=== PATIENT | female | born 1950 | race Caucasian/White ===

== ENCOUNTER 2021-01-04 10:11 | Inpatient (IN) | payer MEDICARE, OTHER ==
[~2021-01-04] VITALS: Ht 256.5 cm; Wt 52.2 kg
--- NOTE | 2021-01-04 10:12 | NUR ---
BIB [facility] from work with c/o abd pain, near syncopal episode at work and hypotension. Pt was brought directly to room 1b, NS 500ml bolus in progress (started by EMS in route to ER). Pt placed on cont medical service representative, pulse ox and BP.
[2021-01-04] MEDS ORDERED: IV NORMAL SALINE 500 ML IV ONE (10:30)
[2021-01-04 10:55] LABS: HEMATOCRIT 45.8 % (31.2-41.9); MEAN CORPUSCULAR HEMOGLOBIN 29.6 uug (24.7-32.8); MEAN CORPUSCULAR VOLUME 88.5 fL (75.5-95.3); PLATELET COUNT (AUTO) 276 K/uL (179-408)
[2021-01-04 11:05] LABS: BILIRUBIN,DIRECT 0.2 mg/dL (0.0-0.2); BILIRUBIN,TOTAL 0.7 mg/dL (0.2-1.0); CREATININE 1.2 mg/dL (0.6-1.3); POTASSIUM 3.1 mmol/L (3.5-5.1); TOTAL PROTEIN, SERUM 6.4 g/dL (6.4-8.2)
--- NOTE | 2021-01-04 11:40 | NUR ---
Pt had a large loose BM and stated she felt much better after.
[2021-01-04] MEDS: MAGNESIUM SULFATE/D5W 100 ML IV SCH ×2 (11:50→13:15)
[2021-01-04] MEDS: POTASSIUM CHLORIDE 20 MEQ TAB.PRT.SR PO ONE ×2 (12:00→12:15)
[2021-01-04] MEDS ORDERED: IV NORMAL SALINE 250 ML IV ONE (12:05)
[2021-01-04] MEDS ORDERED: IOHEXOL 300MG/ML 100 ML INFUS..BTL ONE (12:05)
[2021-01-04] MEDS ORDERED: ONDANSETRON 4 MG/2 ML VIAL IV ONE (12:15)
[2021-01-04] MEDS ORDERED: ONDANSETRON 4 MG/2 ML VIAL ONE (12:54)
[2021-01-04] MEDS ORDERED: MAGNESIUM SULFATE/D5W 200 ML ONE (12:54)
[2021-01-04] MEDS ORDERED: POTASSIUM CHLORIDE 20 MEQ TAB.PRT.SR ONE (12:54)
--- NOTE | 2021-01-04 13:00 | NUR ---
Pt has had multiple loose bowel movements in the ER. Stool sample was collected and sent to lab.
[2021-01-04] MEDS ORDERED: POTASSIUM CHLORIDE 20 MEQ POWDER PACKET PO ONE (13:56)
[2021-01-04] MEDS ORDERED: POTASSIUM CHLORIDE 20 MEQ POWDER PACKET ONE (13:57)
--- NOTE | 2021-01-04 14:09 | NUR ---
Pt resting with NAD noted. Per pt to be admitted to tele, [email or web address] paged.
[2021-01-04] MEDS ORDERED: QUIN40TA14 PO (14:32)
[2021-01-04] MEDS ORDERED: DILT-32 PO (14:32)
--- NOTE | 2021-01-04 15:50 | NUR ---
Pt trans to tele floor (rm [id number]) with NAD noted.
[2021-01-04 16:19] VITALS: BP 133/68
[2021-01-04] MEDS ORDERED: ONDANSETRON 4 MG/2 ML VIAL IV PRN (16:30)
[2021-01-04] MEDS ORDERED: Z GUARD REMEDY PASTE 57 GM TUBE TOP PRN (16:30)
[2021-01-04] MEDS: POTASSIUM CHLORIDE 20 MEQ in IV LACTATED RINGERS SOLUTION 1,000 ML IV PRN (18:27)
[2021-01-04 20:00] VITALS: BP 126/69
--- NOTE | 2021-01-04 20:11 | NUR ---
Patient in bed alert x 4.Denies pain.No s/s of distress noted. On RA.Iv on Right hand patent and intact with IVF running well. IV site no s/s of infiltration.Patient noted with dark red urine output per patient she had one episodes of red urine this morning. Zach Cam made aware .Ok to give lovenox.VSS.Will continue to monitor.
[2021-01-04] MEDS: ACETAMINOPHEN 325 MG TABLET PO PRN (20:40)
[2021-01-04] MEDS: ENOXAPARIN SODIUM 40 MG/0.4 ML DISP.SYRIN SQ SCH (21:36)
[2021-01-04 21:50] LABS: *BILIRUBIN,URIN 1+ (NEGATIVE); *CLARITY,URINE CLEAR (CLEAR); *COLOR,URINE DARK YELLOW (YELLOW); *KETONES,URINE NEGATIVE (NEGATIVE); *UROBILINOGEN,URINE 0.2 E.U./dl (NORMAL); LEUKOCYTE ESTERASE ,URINE NEGATIVE (NEGATIVE); NITRITE, URINE NEGATIVE (NEGATIVE); UGLUCOSE NEGATIVE (NEGATIVE)
[2021-01-04 21:52] LABS: *BLOOD, URINE TRACE LYSED (NEGATIVE)
[2021-01-04 22:35] LABS: BACTERIA,URINE NONE SEEN /HPF (NONE SEEN); SQUAMOUS EPITHELIAL CELL,UR FEW /HPF (NONE SEEN); WBC,URINE 0-3 /HPF (0-3)
[2021-01-05] VITALS: BP 122/68
[2021-01-05 04:00] VITALS: BP 127/74
[2021-01-05] MEDS: ACETAMINOPHEN 325 MG TABLET PO PRN ×2 (04:48→09:35)
[2021-01-05] MEDS: POTASSIUM CHLORIDE 20 MEQ in IV LACTATED RINGERS SOLUTION 1,000 ML IV PRN ×2 (04:50→17:14)
--- NOTE | 2021-01-05 06:28 | NUR ---
Patient's IV pulled out .Re - inserted new Iv on left hand 22 g with good blood return. Patient denies pain at this.Urine sample collected and sent to lab.
[2021-01-05 06:29] LABS: HEMATOCRIT 38.9 % (31.2-41.9); MEAN CORPUSCULAR HEMOGLOBIN 29.1 uug (24.7-32.8); MEAN CORPUSCULAR VOLUME 87.8 fL (75.5-95.3); PLATELET COUNT (AUTO) 152 K/uL (179-408)
[2021-01-05 06:54] LABS: THYROID STIMULATING HORMONE 0.277 mIU/mL (0.358-3.740)
[2021-01-05 06:55] LABS: BILIRUBIN,TOTAL 0.7 mg/dL (0.2-1.0); CREATININE 0.9 mg/dL (0.6-1.3); MAGNESIUM 2.3 mg/dL (1.8-2.4); PHOSPHOROUS 3.4 mg/dL (2.5-4.9); POTASSIUM 4.1 mmol/L (3.5-5.1); TOTAL PROTEIN, SERUM 5.6 g/dL (6.4-8.2)
--- NOTE | 2021-01-05 07:30 | NUR ---
Received pt. AAOX4. vitals stable see VS sheet resting comfortable, on RA. No c/of pain.
[2021-01-05 08:00] VITALS: BP 126/63
--- NOTE | 2021-01-05 10:39 | NUR ---
Attending at bedside to examine pt.
[2021-01-05] MEDS: ASPIRIN/ACETAMINOPHEN/CAFFEINE TABLET PO PRN ×2 (15:37→21:51)
[2021-01-05 15:48] VITALS: BP 108/58
--- NOTE | 2021-01-05 16:38 | NUR ---
handoff report given to rn. Park
[2021-01-05 20:10] VITALS: BP 128/77
[2021-01-05] MEDS: ENOXAPARIN SODIUM 40 MG/0.4 ML DISP.SYRIN SQ SCH (20:43)
[2021-01-06 00:10] VITALS: BP 120/74
[2021-01-06] MEDS: POTASSIUM CHLORIDE 20 MEQ in IV LACTATED RINGERS SOLUTION 1,000 ML IV PRN ×2 (02:59→08:19)
--- NOTE | 2021-01-06 05:28 | NUR ---
Pt slept intermittently throughout the night. Denies pain or SOB. No distress noted. Safety and comfort provided. No other issues or concerns at this time, will endorse to day shift.
--- NOTE | 2021-01-06 07:00 | NUR ---
RECEIVED PT AWAKE, ALERT AND ORIENTEDX4. PT IN NO ACUTE DISTRESS. IV INTACT. SAFETY AND COMFORT PROVIDED. WILL CONTINUE TO MONITOR.
[2021-01-06 07:42] VITALS: BP 143/84
[2021-01-06] MEDS: ASPIRIN/ACETAMINOPHEN/CAFFEINE TABLET PO PRN (09:57)
--- NOTE | 2021-01-06 10:00 | NUR ---
AT 0957H EXC[facility]RIN EXTRA STRENGTH TAB Q6HRPN GIVEN FOR HEADACHE. PT TOLERATED IT WELL. PT STABLE. WILL CONTINUE TO MONITOR.
[2021-01-06 10:57] VITALS: BP 135/69
--- NOTE | 2021-01-06 11:12 | NUR ---
PT ENDORSED TO [facility]. PT STABLE AND IN NO ACUTE DISTRESS. PRESCRIBED MEDICATION TOLERATED WELL.
--- NOTE | 2021-01-06 11:15 | NUR ---
RECEIVED PATIENT. A&O X3. PREPARED FOR DISCHARGE, IV DC'D. ANGIOCATH REMOVED INTACT.
--- NOTE | 2021-01-06 14:00 | NUR ---
UNABLE TO OPEN SAFE. [facility] CALLED TO OPEN SAFE FOR PATIENT'S VALUABLES.
--- NOTE | 2021-01-06 15:30 | NUR ---
PATIENT QUIETLY AWAITING SAFE TO BE UNLOCKED. READY FOR VDISCHARGE.
--- NOTE | 2021-01-06 16:40 | NUR ---
DISCHARGED VIA W/C, ACCOMPANIED BY EDER GARRIDO TO [facility]. NO DISTRESS NOTED.
== END 2021-01-06 16:40 | disposition home or self-care (01) | DRG 74 ==
LOC: ER 10:11 → TELE3 15:32 → MEDSURG3 01-05 23:11
PROVIDERS: ADMIT Nurse Practitioner Acute Care; ATTEND Nurse Practitioner Acute Care
DX: G90.8 Other disorders of autonomic nervous system (principal); E87.2 Acidosis; E87.6 Hypokalemia; E86.1 Hypovolemia; K52.9 Noninfective gastroenteritis and colitis, unspecified; Z20.822 Contact with and (suspected) exposure to COVID-19; I95.9 Hypotension, unspecified; I10 Essential (primary) hypertension
CPT/HCPCS: 36415; 70030-TC; 83605; 83735; 84100; 84443; 85025; 85730; 87040; 93005; A4663; A9150; G0378; J1650; J2405; J3475; J3480; J7030; J7050; J7120; Q9967